=== PATIENT | female | born 1970 | race Caucasian/White ===

== ENCOUNTER 2018-02-13 14:33 | Emergency (ER) | payer MEDICAID ==
[~2018-02-13] VITALS: Ht 172.7 cm; Wt 90.0 kg
[~2018-02-13 14:33] MED LIST: CLIN300C85 PO; IBUP-1984 PO
[2018-02-13 14:51] VITALS: BP 110/71
[2018-02-13] MEDS ORDERED: PRED20TA PO (15:21)
[2018-02-13] MEDS ORDERED: predniSONE 20 mg tablet PO ONE (15:25)
== END 2018-02-13 15:47 | disposition home or self-care (01) ==
LOC: ER 14:34
DX: L50.9 Urticaria, unspecified (principal); F12.90 Cannabis use, unspecified, uncomplicated; F15.90 Other stimulant use, unspecified, uncomplicated; Z59.0 Homelessness; Z88.6 Allergy status to analgesic agent
CPT/HCPCS: 71045; 99283; J7512

== ENCOUNTER 2018-02-17 01:56 | Emergency (ER) | payer MEDICAID ==
[~2018-02-17] VITALS: Ht 172.7 cm; Wt 76.0 kg
[~2018-02-17 01:56] MED LIST changes: +PRED20TA PO
[2018-02-17 01:59] VITALS: BP 133/85
[2018-02-17] MEDS ORDERED: acetaminophen 325mg tablet PO ONE (02:25)
[2018-02-17] MEDS ORDERED: diphenhydrAMINE 50 mg/ml inj IM ONE (02:25)
[2018-02-17] MEDS ORDERED: diphenhydrAMINE 25mg capsule PO ONE (02:40)
[2018-02-17] MEDS ORDERED: ketorolac trometh inj. 60 MG/2 ML VIAL IM ONE (03:25)
[2018-02-17] MEDS ORDERED: PRED20TA PO (03:35)
[2018-02-17] MEDS ORDERED: BENZ1LOZ61 PO (03:35)
== END 2018-02-17 03:45 | disposition home or self-care (01) ==
LOC: ER 01:57
DX: T78.40XA Allergy, unspecified, initial encounter (principal); L50.8 Other urticaria; R51 Headache; F12.90 Cannabis use, unspecified, uncomplicated; F15.90 Other stimulant use, unspecified, uncomplicated; Z56.0 Unemployment, unspecified; Z90.89 Acquired absence of other organs; Z88.5 Allergy status to narcotic agent; Y92.9 Unspecified place or not applicable
CPT/HCPCS: 96372; 99283; J1885; Q0163

== ENCOUNTER 2018-06-10 19:06 | Emergency (ER) | payer MEDICAID ==
[~2018-06-10] VITALS: Ht 172.7 cm; Wt 91.0 kg
[~2018-06-10 19:06] MED LIST changes: +BENZ1LOZ61 PO; -IBUP-1984 PO; -PRED20TA PO
[2018-06-10] MEDS ORDERED: LORazepam 1 MG tablet PO ONE (19:40)
[2018-06-10] MEDS ORDERED: LORazepam 0.5 MG tablet PO ONE (19:45)
[2018-06-10] MEDS ORDERED: PALI9TAB PO (20:11)
[2018-06-10 20:28] LABS: BASOPHILS # (AUTO) 0.1 X10'3 (0-0.2); BASOPHILS % (AUTO) 0.7 % (0-1); EOSINOPHILS # (AUTO) 0.2 X10'3 (0-0.9); EOSINOPHILS % (AUTO) 2.8 % (0-6); HEMATOCRIT 41.3 % (35.0-45.0); HEMOGLOBIN 13.9 g/dl (12.0-16.0); LYMPHOCYTES # (AUTO) 2.3 X10'3 (1.1-4.8); LYMPHOCYTES % (AUTO) 28.6 % (21-51); MEAN CORPUSCULAR HEMOGLOBIN 30.3 PG (27.0-31.0); MEAN CORPUSCULAR HGB CONC 33.7 % (33.0-36.5); MEAN CORPUSCULAR VOLUME 89.8 FL (78-98); MEAN PLATELET VOLUME 7.5 FL (7.4-10.4); MONOCYTES # (AUTO) 0.9 X10'3 (0-0.9); MONOCYTES % (AUTO) 11.6 % (2-12); NEUTROPHILS # (AUTO) 4.5 X10'3 (1.8-7.7); NEUTROPHILS % (AUTO) 56.3 % (42-75); PLATELET COUNT 312 X10'3 (140-440); RED BLOOD COUNT 4.61 X10'6 (4.20-5.60); RED CELL DISTRIBUTION WIDTH 13.6 % (11.5-14.5); WHITE BLOOD COUNT 7.9 X10'3 (4.5-11.0)
[2018-06-10 20:34] LABS: URINE HCG NEGATIVE (NEG)
[2018-06-10 20:40] LABS: CLARITY,URINE SLIGHTLY CLOUDY (Clear); COLOR,URINE YELLOW (Yellow); GLUCOSE, URINE NEGATIVE (Neg); KETONES,URINE NEGATIVE (Neg); LEUKOCYTE ESTERASE ,URINE SMALL (Neg); NITRITES, URINE NEGATIVE (Neg); OCCULT BLOOD,URINE NEGATIVE (Neg); PH,URINE 5.5 (4.8-8.0); PROTEIN,URINE NEGATIVE (Neg); UROBILINOGEN,URINE 0.2 E.U/dL (0.2-1.0)
--- NOTE | 2018-06-10 20:41 | NUR ---
Assumed care of pt, report received from Kayden HERNANDEZ. Pt is voluntary, she is here for S/I with plan to OD on meds, hx of Bipolar D/O/Depression?anxi Addendum: 06/10/18 at 2041 by ENEIGladys Note Continued: anxiety, takes Invega po, as well as long acting injectable per report. Telepsych pending.
[2018-06-10 20:42] LABS: ALANINE AMINOTRANSFERASE 49 U/L (12-78); ALBUMIN 3.2 G/DL (3.4-5.0); ALBUMIN/GLOBULIN RATIO 0.7 (1.1-1.5); ALKALINE PHOSPHATASE 145 IU/L (46-116); ANION GAP 13 (8-16); ASPARTATE AMINO TRANSFERASE 30 U/L (10-37); BILIRUBIN,TOTAL 0.2 MG/DL (0.1-1.0); BLOOD UREA NITROGEN 11 MG/DL (7-18); BUN/CREATININE RATIO 13.6 (6.6-38.0); CALCIUM 8.5 MG/DL (8.5-10.1); CHLORIDE 101 MMOL/L (99-107); CREATININE 0.81 MG/DL (0.40-0.90); ETHANOL < 0.010 GM/DL (0.0-0.010); GLUCOSE 93 MG/DL (70-104); POTASSIUM 3.8 MMOL/L (3.5-5.1); SODIUM 138 MMOL/L (135-145); TOTAL CARBON DIOXIDE 24.5 MMOL/L (24-32); TOTAL PROTEIN 7.5 G/DL (6.4-8.2); eGFR 76 ML/MIN
[2018-06-10 20:45] LABS: URINE AMPHETAMINE SCREEN POSITIVE (Neg); URINE BARBITUATE SCREEN NEGATIVE (Neg); URINE BENZODIAZEPINES SCREEN NEGATIVE (Neg); URINE CANNABINOID SCREEN POSITIVE (Neg); URINE COCAINE SCREEN NEGATIVE (Neg); URINE METHADONE SCREEN NEGATIVE (Neg); URINE OPIATE SCREEN NEGATIVE (Neg); URINE PHENCYCLIDINE SCREEN NEGATIVE (Neg)
[2018-06-10 21:01] LABS: UA COLLECTION TYPE CLN CATCH MIDSTREAM
[2018-06-10 21:06] LABS: MUCUS STRANDS MODERATE /LPF (Neg); SQUAMOUS EPITHELIAL CELL,UR MANY /LPF (FEW)
[2018-06-10 21:07] LABS: BACTERIA,URINE 1+ /HPF (Neg); RBC,URINE 0-2 /HPF (0-2)
--- NOTE | 2018-06-10 21:55 | NUR ---
Telepsych contacted to set up evaluation.
--- NOTE | 2018-06-10 22:30 | NUR ---
Pt lying on R side, RR even and unlabored, no signs of distress.
--- NOTE | 2018-06-10 23:00 | NUR ---
Pts mother called Nona Lamb phone # [phone], wants to be notified if pt is transferred, pt states she is ok with this.
--- NOTE | 2018-06-11 01:07 | NUR ---
Pt lying on R side, RR even and unlabored, no signs of distress.
--- NOTE | 2018-06-11 03:06 | NUR ---
Pt lying on back, RR even and unlabored, no signs of distress.
--- NOTE | 2018-06-11 03:12 | NUR ---
Report given to telepsych psychiatrist, woke pt up to prepare for eval.
--- NOTE | 2018-06-11 03:27 | NUR ---
Telepsych completed, recommending discharge back to [facility], pt denied intent to harm self and wants to return to [facility].
--- NOTE | 2018-06-11 04:23 | NUR ---
Received printed telepsych consult recommendations and tried to find MD in main ER to review, but none available at this time.
--- NOTE | 2018-06-11 05:17 | NUR ---
Pt resting on R side, RR even and unlabored, no signs of distress.
--- NOTE | 2018-06-11 05:18 | NUR ---
Note clair in ED - 06/11/18 at 0520 by BELA Pt resting on her back, RR even and unlabored, no signs of distress.
[2018-06-11 05:46] VITALS: BP 116/79
[2018-06-11] MEDS ORDERED: PALIPERIDONE 3 MG TAB.ER.24 PO SCH (08:00)
== END 2018-06-11 08:44 ==
LOC: ER 19:06
DX: R45.851 Suicidal ideations (principal); F32.9 Major depressive disorder, single episode, unspecified; F41.9 Anxiety disorder, unspecified; F12.90 Cannabis use, unspecified, uncomplicated; Z90.89 Acquired absence of other organs; Z88.5 Allergy status to narcotic agent; Z79.899 Other long term (current) drug therapy
CPT/HCPCS: 36415; 80053; 80305; 80320; 81001; 81025; 84443; 85025; 99285